=== PATIENT | male | born 1950 | race Caucasian/White ===

== ENCOUNTER → 2022-02-07 | Outpatient (CLI) | payer MEDICARE, OTHER, SELFPAY | END | disposition home or self-care (01) | PROVIDERS: Referring Provider Internal Medicine Nephrology; Visit Provider Internal Medicine Nephrology | DX: Z01.818 Encounter for other preprocedural examination (principal); N18.6 End stage renal disease | CPT/HCPCS: 93985 ==

== ENCOUNTER 2022-04-04 08:25 | Day surgery (SDC) | payer MEDICARE, OTHER, SELFPAY ==
--- NOTE | 2022-04-02 09:24 | EKG12_ITS ---
Test Reason : PRE-OP Blood Pressure : / mmHG Vent. Rate : 056 BPM Atrial Rate : 056 BPM P-R Int : 210 ms QRS Dur : 148 ms QT Int : 480 ms P-R-T Axes : 053 -25 -79 degrees QTc Int : 463 ms Sinus bradycardia with 1st degree A-V block Right bundle branch block Septal infarct , age undetermined T wave abnormality, consider inferolateral ischemia Abnormal ECG Confirmed by ALYSON NEVES, CHRISTY ([id number]), scientific publications editor TANVI GONZALEZ ([id number]) on 04/03/2022 11:06:15 AM Referred By: DESIREE Confirmed By:CHRISTY SHIELDS MD
[2022-04-02 10:57] LABS: Hematocrit 35.6 % (40-54); Mean Corp Hgb Conc 33.7 g/dL (32-36); Mean Corpuscular Hgb 34.2 pg (27.0-32.0); Mean Corpuscular Volume 101.4 fL (80-94); Mean Platelet Vol. 12.3 fl (6.2-12.0); POSITIVE COUNT YES; Platelet Count 70 K/mm3 (150-450); RBC Distribution Width CV 13.7 % (11.6-14.6); RBC Distribution Width SD 51.2 fl (35.1-43.9); Red Blood Count 3.51 M/mm3 (4.6-6.2); White Blood Count 3.8 K/mm3 (4.4-11.0)
[2022-04-02 10:58] LABS: Scan Indicated on CBC? Y/N YES- FLAGS NOTED
[2022-04-02 11:18] LABS: Anion Gap 6 (5-15); BUN 26 mg/dL (7-18); BUN/Creat Ratio 7.1 RATIO (10-20); Calcium,Total 9.5 mg/dL (8.5-10.1); Chloride 99 mmol/L (98-107); Creatinine, Serum 3.65 mg/dL (0.70-1.30); EST Glomerular Filtration Rate 17 mL/min (>60); Est Glom Filt Rate - Afr Amer 21 mL/min (>60); Glucose 267 mg/dL (74-106); Potassium 3.9 mmol/L (3.5-5.1); Sodium Level 137 mmol/L (136-145)
[2022-04-04] VITALS (9 sets, daily range): BP systolic 72–119; BP diastolic 45–66; PULSE 47–59; RESP 14–16; TEMP 36.3–37; O2SAT 92–99; BMI 26.6
[2022-04-04 10:00] LABS: Bedside Glucose 166 mg/dL (74-106)
--- NOTE | 2022-04-04 10:26 | PCM.HP.BLA ---
History and Physical Date of Admission: 04/04/22 Chief Complaint: fistula consult Benefit Specialist Required: No Is patient in pain?: No Allergies codeine Allergy (Verified 03/12/22 15:47) PT UNSURE OF REACTIONlisinopril Allergy (Verified 03/12/22 15:47) cough Medications amlodipine 2.5 mg tablet 2.5 mg PO DAILY 03/12/22 [History Confirmed 03/12/22] aspirin 81 mg chewable tablet 81 mg PO DAILY 03/12/22 [History Confirmed 03/12/22] atorvastatin 80 mg tablet 80 mg PO QPM 03/12/22 [History Confirmed 03/12/22] calcitriol 0.25 mcg capsule 0.5 mcg PO DAILY 03/12/22 [History Confirmed 03/12/22] clopidogrel 75 mg tablet 75 mg PO DAILY 03/12/22 [History Confirmed 03/12/22] cyanocobalamin (vitamin B-12) 1,000 mcg capsule 1,000 mcg PO DAILY 03/12/22 [History Confirmed 03/12/22] ferrous sulfate 325 mg (65 mg iron) tablet 325 mg PO Q OTHER DAY 03/12/22 [History Confirmed 03/12/22] folic acid 1 mg tablet 1 mg PO DAILY 03/12/22 [History Confirmed 03/12/22] furosemide 20 mg tablet 20 mg PO DAILY PRN 03/12/22 [History Confirmed 03/12/22] furosemide 20 mg tablet (Lasix) 40 mg PO DAILY 03/12/22 [History Confirmed 03/12/22] hydralazine 10 mg tablet 10 mg PO TID 03/12/22 [History Confirmed 03/12/22] insulin glargine 100 unit/mL (3 mL) subcutaneous pen 25 unit subcut QAM 03/12/22 [History Confirmed 03/12/22] lidocaine 5 % topical patch 1 patch topical DAILY 03/12/22 [History Confirmed 03/12/22] metoprolol succinate 25 mg tablet,extended release 24 hr 12.5 mg PO DAILY 03/12/22 [History Confirmed 03/12/22] nitroglycerin 0.1 mg/hr transdermal 24 hour patch 1 patch transdermal DAILY 03/12/22 [History Confirmed 03/12/22] nitroglycerin 0.4 mg sublingual tablet 0.4 mg sublingual Q5M PRN 03/12/22 [History Confirmed 03/12/22] omeprazole 20 mg capsule,delayed release 20 mg PO DAILY 03/12/22 [History Confirmed 03/12/22] pregabalin 75 mg capsule 75 mg PO BID 03/12/22 [History Confirmed 03/12/22] tramadol 50 mg tablet 50 mg PO BID PRN 03/12/22 [History Confirmed 03/12/22] PFSH Surgical History?(Updated 03/12/22 @ 12:50 by Ginna Merida) History of heart artery stent Social History?(Updated 03/12/22 @ 12:51 by Ginna Merida) Smoking Status:? Never smoker alcohol intake:? current substance use type:? does not use HPI HPI HPI: 71-year-old gentleman was referred for chronic hemodialysis access by Dr Jeniffer Galan and a written copy my surgical consult recommendations will return to him.? The patient has end-stage renal disease. At the [facility] on February 07, 2022 he had bilateral upper extremity vein mapping.? It is pertinent that the left cephalic vein at the mid bicep is partially compressible with bright intraluminal echoes consistent with chronic superficial thrombophlebitis.? The left upper arm basilic vein is of normal caliber and compressibility.? The right upper extremity cephalic vein appears to be patent and compressible throughout as does the basilic vein.? Bilateral brachial and radial arteries are felt to be appropriate. Patient is right arm dominant.? He states that he has had 3 separate tunneled catheters.? 1 on the right and now his second 1 and third 1 on the left.? His preoperative vein mapping as above showed thrombophlebitis left forearm. He states that his renal failure was in part result of coronary catheterization and dye load with stent placement approximately JuneJuly 2021 according to him.? He is on anticoagulant but is not aware of the medication ROS General General: No weight change, appetite, fatigue, colon cancer, breast cancer or weakness HEENT HEENT: Yes eye surgery; No difficulty swallowing, eye injury, swollen glands or hoarseness Endo Endocrine: Yes diabetes mellitus; No thyroid disease, thyroid cancer, Hair loss, heat intolerance or cold intolerance Skin Skin: No rash or changing moles Breast Breast: No left breast lump, right breast lump, nipple discharge, breast pain, abnormal mammogram, abnormal US or breast enlargement Musc Musculoskeletal: Yes back problems; No arthritis, rheumatoid arthritis, gout or joint pain Cardio Cardiovascular: Yes heart disease and heart stent; No murmur, pacemaker, atrial fibrillation, high blood pressure, heart attack, palpitations, shortness of breat with exertion or chest pain Psych Psychiatric: No depression, anxiety or hearing voices Resp Respiratory: No shortness of breath, No sleep apnea, No cough, No COPD, No asthma, No emphysema and No wheezing Gastro Gastrointestinal: No abdominal pain, No nausea or vomiting, No diarrhea, No constipation, No blood in stool, No acid reflux, No hemorrhoids, No ulcers, No gallbladder problem and No black,tarry stools Macario Hematologic: No blood thinners, No blood disorders, No bleeding, No anemia and No blood clots Neuro Neurologic: No system reviewed and no additional complaints, except as documented, No as per HPI, No abnormal gait, No abnormal hearing, No abnormal movements, No abnormal speech, No behavioral changes, No burning sensations, No confusion, No convulsions, No disequilibrium, No dizziness, No localized weakness, No frequent falls, No headache(s), No lack of coordination, No loss of vision, No memory loss, No numbness, No other visual disturbances, No radicular pain, No restless legs, No sensory deficit, No syncope, No tingling, No tremor(s), No weakness and No other Exam Const General: cooperative, comfortable and no acute distress Nutritional Appearance: average body habitus Orientation: alert, awake and oriented x3 HENMT Head: normal to inspection Eyes Other: Pupils are small Chest Other: Left chest tunneled dialysis catheters Resp Effort & Inspection: normal respiratory effort Auscultation: clear to auscultation bilaterally Cardio Rate: regular rate Rhythm: regular rhythm GI Palpation: soft and no hepatosplenomegaly Skin General: no rashes or lesions noted Neuro Other: Patient has a wide-based unsteady gait Extrem Other: Duplex inspection of the left forearm demonstrates superficial thrombophlebitis of the cephalic vein.? Unfortunately in the mid upper arm cephalic vein there is also an area of focal thrombophlebitis with vein scarring and narrowing Right upper extremity demonstrates patent and compressible cephalic vein from the forearm through the upper arm. Right radial pulse 3+.? Left ulnar pulse diminutive.? Connor test does demonstrate partial ulnar flow. Psych Appearance: grossly normal Assessment and Plan Assessment and Plan (1) Chronic in-center hemodialysis status: ?Status:?Acute ?Plan: Navjot recommended the patient a right forearm radial to cephalic arteriovenous hemodialysis fistula creation.? He has a side branch approximately third of the way up which hopefully I will ligate the setting.? The patient is on anticoagulant we will check his medication from his dialysis center.? We will least need to hold his anticoagulant the day prior to procedure. He is aware that it is dominant arm but unfortunately secondary to venous intervention he has superficial thrombophlebitis of his left forearm and upper arm cephalic vein.? A transposition left upper arm basilic vein would be is significantly greater intervention and would certainly require longer holding of his anticoagulant which I do not advise at this time He is aware that there are no guarantees of success.? He is aware of the technique, benefit, risk, alternatives.? He has had an opportunity to ask and have questions answered. I appreciate the opportunity of assisting with the surgical care.? We will schedule and proceed at his discretion. It is of note that we have been notified the patient is on clopidogrel therapy as well as low-dose aspirin.? He asked that he hold his clopidogrel 1 day preoperatively.? A longer period of time unfortunately is not appropriate based upon his coronary stenting. Copy: Dr Jeniffer Galan and Arnaud Goodwin , DO Errol Milian M.D., F.A.C.S. I have examined the patient and the H&P has been reviewed. There are no clinical changes since date of exam. Errol Milian M.D., F.A.C.S.
--- NOTE | 2022-04-04 10:26 | EX.PCM.DISCH ---
Discharge Instructions Procedure Fistula Diet Discharge Diet: Renal Diet Activity Discharge Activity: May Not Drive (for 2-3 days or while taking narcotic pain medications.) and May Take a Tub Bath (in 5 days.) Lifting Restrictions: 5 pounds Keep extremity elevated above heart level: - (Keep arm elevated above the heart level for 3 days.) Dressing / Incision Call your doctor if your incision/area has: Continuous Slow Oozing, Sudden Increased Bleeding (apply pressure and call your doctor.), Increased Pain/ Swelling, Increased Redness and Foul Smelling Discharge Call your doctor if you observe: Fever of 101 or Higher Suture Line Care: Avoid Pulling/Pushing and Avoid Pinching/Bending Cleanse incision/area with: Keep Dressing Clean & Dry Additional Dressing/Incision Instructions:: Change or remove dressing in 2 to 3 days. May protect with a gauze bandaid. Leave the Steri-Strips in place for 1 additional week Follow Up Care Please Follow Up With: Errol Milian MD When: Call [phone] to make an appointment for suture removal and follow up in 7 to 10 days. Discharge Plan Admission Primary Reason for Your Visit: Creation of hemodialysis fistula Attending Provider: Errol Milian Primary Care Provider: Arnaud Goodwin Discharge Orders/Prescriptions Prescriptions: Continued aspirin 81 mg tablet,chewable 81 mg PO DAILY nitroglycerin 0.1 mg/hr patch 24 hour 1 patch transdermal DAILY Rx Instructions: allow nitrate-free interval of approx. 10-12 hrs per 24-hour period nitroglycerin 0.4 mg tablet, sublingual 0.4 mg sublingual Q5M PRN (Reason: Chest Pain) Rx Instructions: do not exceed 3 doses per episode hydralazine 10 mg tablet 10 mg PO DAILY atorvastatin 80 mg tablet 80 mg PO QPM metoprolol succinate 25 mg tablet extended release 24 hr 12.5 mg PO QHS calcitriol 0.25 mcg capsule 0.25 mcg PO BID amlodipine 2.5 mg tablet 2.5 mg PO DAILY pregabalin 75 mg capsule 75 mg PO BID cyanocobalamin (vitamin B-12) 1,000 mcg capsule 1,000 mcg PO DAILY folic acid 1 mg tablet 1 mg PO DAILY omeprazole 20 mg capsule,delayed release(DR/EC) 20 mg PO DAILY insulin glargine 100 unit/mL (3 mL) insulin pen 25 unit subcut QHS ferrous sulfate 325 mg (65 mg iron) tablet 325 mg PO Q OTHER DAY lidocaine 5 % adhesive patch,medicated 1 patch topical DAILY Rx Instructions: leave on most painful area for up to 12 hrs furosemide [Lasix] 20 mg tablet 40 mg PO DAILY furosemide 20 mg tablet 20 mg PO QHS tramadol 50 mg tablet 50 mg PO BID PRN (Reason: Pain) clopidogrel 75 mg tablet 75 mg PO DAILY Other Ambulatory Orders: 12 Lead EKG (Routine) Timeframe: 20220402 Location: None Selected Ordered By: Dr. Errol Milian Referrals / Follow Up: Arnaud Goodwin DO [Primary Care Provider] - Disposition Disposition (needs filled in before D/C Order can be placed): Home, Self Care
[2022-04-04] MEDS: Cefazolin 2 GM in 0.9% Normal Saline 100 ML IV (10:33)
[2022-04-04] MEDS: Bupivacaine 0.25% 30 ML Vial (11:37)
[2022-04-04] MEDS: Lidocaine 1% (20 ml mdv) 20 ML Vial (11:37)
[2022-04-04] MEDS: Heparin Injection (Vial) 5,000 UNIT/ML VIAL 5000 UNIT (11:37)
--- NOTE | 2022-04-04 11:54 | PCM.OPRPT ---
Report of Operation Date of Procedure: 04/04/22 Pre-Operative Diagnosis: Stage V chronic renal insufficiency Post-Operative Diagnosis: Same Surgery/Procedure Performed:: Right forearm radiocephalic arteriovenous hemodialysis fistula creation Description of Surgical Findings:: Timeout informed consent was obtained. 72-year-old gentleman was taken to the operating placed supine on the table underwent monitored anesthesia care. Ancef 2 g given intravenously. The right upper extremity was sterilely prepped and draped. 1% lidocaine mixed 50-50 with 0.5% Marcaine was used as a local anesthetic. A total of 4 cc was used. Ultrasound mapping of the vein had been performed. Local was instilled. A slightly oblique transverse right radial wrist incision was created sharp and blunt dissection was used to identify the cephalic vein this was circumferentially dissected free. It was ink marked. Sharp and blunt dissection was used to identify the radial artery which was admittedly diffusely calcific. The vein was ligated distally with hemoclips then it was inspected irrigated and spatulated. Patient received 8000 units of heparin and peripheral vascular clamps were placed on the radial artery and 11 blade was used to make an arteriotomy which was extended with Blank scissors. A end-to-side venous to arterial anastomosis was created with a running 7-0 Prolene. Prior to completion there was good antegrade retrograde flow and I placed a 2 mm Ruben dilator proximally. Anastomosis was completed hemostasis was nicely intact the vein appeared to immediately distend. I then examined approximately 6 cm more proximally on the cephalic vein and a sidebranch instilled local made a transverse incision got circumferential control of that side branch and secured with a 2-0 Vicryl ligature. Inspection revealed a fistula already flowing nicely. The wounds were closed were appropriate with interrupted subdermal 3-0 Vicryl and then interrupted subcuticular 4-0 Monocryl. Steri-Strips Telfa tape dressings applied. Sponge and instrument and needle counts were reported to the surgeon to be correct. Specimens none. Drains none. Blood loss minimal. The patient was taken to the recovery area in satisfactory addition without apparent complication Errol Milian M.D., F.A.C.S. Surgeon: Errol Milian Type of Anesthesia: Local MAC Anesthesiologist: Carlos Avalos
== END 2022-04-04 15:00 | disposition home or self-care (01) ==
LOC: SDC 08:25 → AC 08:26
PROVIDERS: PCP Internal Medicine; Visit Provider Surgery
PROC: (CPT 36821; principal; 2022-04-04 10:15)
DX: Z45.2 Encounter for adjustment and management of vascular access device (principal); I13.2 Hypertensive heart and chronic kidney disease with heart failure and with stage 5 chronic kidney disease, or end stage renal disease; Z99.2 Dependence on renal dialysis; I50.9 Heart failure, unspecified; I27.20 Pulmonary hypertension, unspecified; N18.6 End stage renal disease; Z79.4 Long term (current) use of insulin; I45.10 Unspecified right bundle-branch block; E78.00 Pure hypercholesterolemia, unspecified; Z95.5 Presence of coronary angioplasty implant and graft; Z79.82 Long term (current) use of aspirin; Z79.02 Long term (current) use of antithrombotics/antiplatelets; Z79.899 Other long term (current) drug therapy
CPT/HCPCS: 36821; 01844; 36415; 80048; 82962; 85027; 93005; J7040; J2405

== ENCOUNTER → 2022-08-22 | Outpatient (CLI) | payer MEDICARE, OTHER, SELFPAY ==
[2022-08-22 08:56] LABS: Absolute Lymphocyte Count 0.91 X10^3/uL (0.83-4.51); Absolute Neutrophil Count 3.3 X10^3/uL (2.0-7.7); Basophil# 0.02 X10^3/uL; Basophil% 0.4 % (0-1); Eosinophil# 0.18 X10^3/uL; Eosinophils% 3.6 % (0-5); Hematocrit 32.5 % (40-54); Hemoglobin 10.8 g/dL (13.0-16.5); Lymphocyte # 0.91 X10^3/ul (0.83-4.51); Lymphocyte % 18.3 % (19-41); Mean Corp Hgb Conc 33.2 g/dL (32-36); Mean Corpuscular Hgb 34.1 pg (27.0-32.0); Mean Corpuscular Volume 102.5 fL (80-94); Mean Platelet Vol. 11.9 fl (6.2-12.0); Monocyte# 0.59 X10^3/uL; Monocyte% 11.9 % (0-10); NRBC Flagged by Analyzer 0 % (0-5); Neutrophil # 3.25 X10^3/uL (2.7-7.7); Neutrophil % 65.4 % (47-70); POSITIVE COUNT YES; Platelet Count 83 K/mm3 (150-450); RBC Distribution Width CV 13.1 % (11.6-14.6); RBC Distribution Width SD 49.5 fl (35.1-43.9); Red Blood Count 3.17 M/mm3 (4.6-6.2)
[2022-08-22 09:16] LABS: Anion Gap 8 (5-15); BUN 46 mg/dL (7-18); BUN/Creat Ratio 9.3 RATIO (10-20); Calcium,Total 9.7 mg/dL (8.5-10.1); Chloride 103 mmol/L (98-107); Creatinine, Serum 4.92 mg/dL (0.70-1.30); EST Glomerular Filtration Rate 12 mL/min (>60); Est Glom Filt Rate - Afr Amer 15 mL/min (>60); Glucose 119 mg/dL (74-106); Potassium 4.2 mmol/L (3.5-5.1); Sodium Level 141 mmol/L (136-145)
== END | disposition home or self-care (01) ==
LOC: PAVLAB 08:36
PROVIDERS: PCP Internal Medicine; Referring Provider Physician Assistant; Visit Provider Physician Assistant
DX: T82.898A Other specified complication of vascular prosthetic devices, implants and grafts, initial encounter (principal)
CPT/HCPCS: 36415; 80048; 85025

== ENCOUNTER 2022-09-03 06:41 | Day surgery (SDC) | payer MEDICARE, OTHER, SELFPAY ==
[2022-09-02 08:13] VITALS: BMI 26.4
--- NOTE | 2022-09-03 07:30 | PCM.HP.BLA ---
History and Physical Date of Admission: 09/03/22 Visit Reasons:?issues with fistula/infiltrating Chief Complaint: issues with fistula Philosophy Faculty Member Required: No Is patient in pain?: No Allergies codeine Allergy (Verified 08/22/22 08:15) PT UNSURE OF REACTIONlisinopril Allergy (Verified 08/22/22 08:15) cough Medications amlodipine 2.5 mg tablet 2.5 mg PO DAILY 03/12/22 [History Confirmed 08/22/22] aspirin 81 mg chewable tablet 81 mg PO DAILY 03/12/22 [History Confirmed 08/22/22] atorvastatin 80 mg tablet 80 mg PO QPM 03/12/22 [History Confirmed 08/22/22] calcitriol 0.25 mcg capsule 0.25 mcg PO BID 03/12/22 [History Confirmed 08/22/22] clopidogrel 75 mg tablet 75 mg PO DAILY 03/12/22 [History Confirmed 08/22/22] cyanocobalamin (vitamin B-12) 1,000 mcg capsule 1,000 mcg PO DAILY 03/12/22 [History Confirmed 08/22/22] ferrous sulfate 325 mg (65 mg iron) tablet 325 mg PO Q OTHER DAY 03/12/22 [History Confirmed 08/22/22] folic acid 1 mg tablet 1 mg PO DAILY 03/12/22 [History Confirmed 08/22/22] furosemide 20 mg tablet 20 mg PO QHS 03/12/22 [History Confirmed 08/22/22] furosemide 20 mg tablet (Lasix) 40 mg PO DAILY 03/12/22 [History Confirmed 08/22/22] hydralazine 10 mg tablet 10 mg PO DAILY 03/12/22 [History Confirmed 08/22/22] insulin glargine 100 unit/mL (3 mL) subcutaneous pen 25 unit subcut QHS 03/12/22 [History Confirmed 08/22/22] lidocaine 5 % topical patch 1 patch topical DAILY 03/12/22 [History Confirmed 08/22/22] metoprolol succinate 25 mg tablet,extended release 24 hr 12.5 mg PO QHS 03/12/22 [History Confirmed 08/22/22] nitroglycerin 0.1 mg/hr transdermal 24 hour patch 1 patch transdermal DAILY 03/12/22 [History Confirmed 08/22/22] nitroglycerin 0.4 mg sublingual tablet 0.4 mg sublingual Q5M PRN Chest Pain 03/12/22 [History Confirmed 08/22/22] omeprazole 20 mg capsule,delayed release 20 mg PO DAILY 03/12/22 [History Confirmed 08/22/22] pregabalin 75 mg capsule 75 mg PO BID 03/12/22 [History Confirmed 08/22/22] tramadol 50 mg tablet 50 mg PO BID PRN Pain 03/12/22 [History Confirmed 08/22/22] PFSH Medical History? Cardiology follow-up encounter Chest pain Chronic in-center hemodialysis status Diabetes Gastric reflux Heart disease Heartburn High cholesterol History of CHF (congestive heart failure) History of diverticulitis History of edema History of renal disease History of stress test Hx of testicular biopsy Hypertension Insulin dependent diabetes mellitus Leg cramps Low iron Non-smoker Numbness and tingling Walker as ambulation aid Wears dentures Wears glasses Surgical History? History of arteriovenous graft History of back surgery History of heart artery stent Hx of CABG Hx of knee surgery Hx of wisdom tooth extraction Social History? Smoking Status:? Never smoker alcohol intake:? current substance use type:? does not use HPI HPI Surgical H&P: Yes HPI: Patient is a 72 y/o M I am seeing for problem with dialysis access. Patient's dialysis center called our office noting the patient's fistula was infiltrating. Patient has a right forearm radiocephalic arteriovenous fistula which was created on 04/30/22. Patient has never had a fistulogram previously. Patient had a successful right forearm cephalic vein sidebranch ligation [address] Milian on 05/23/22. Patient is currently on dialysis at [facility]. Dr. Casas is his wrapper stitcher. ? 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 Patient is currently on Plavix daily. Patient has been wearing a nitro patch approximately 16 hours per day for at least 6 months. Patient denies chest pain currently. ROS General General: No weight change, appetite, fatigue, colon cancer, breast cancer or weakness HEENT HEENT: Yes eye surgery; No difficulty swallowing, eye injury, swollen glands or hoarseness Endo Endocrine: Yes diabetes mellitus; No thyroid disease, thyroid cancer, Hair loss, heat intolerance or cold intolerance Skin Skin: No rash or changing moles Breast Breast: No left breast lump, right breast lump, nipple discharge, breast pain, abnormal mammogram, abnormal US or breast enlargement Musc Musculoskeletal: Yes back problems; No arthritis, rheumatoid arthritis, gout or joint pain Cardio Cardiovascular: Yes heart disease and heart stent; No murmur, pacemaker, atrial fibrillation, high blood pressure, heart attack, palpitations, shortness of breat with exertion or chest pain Psych Psychiatric: No depression, anxiety or hearing voices Resp Respiratory: No shortness of breath, No sleep apnea, No cough, No COPD, No asthma, No emphysema and No wheezing Gastro Gastrointestinal: No abdominal pain, No nausea or vomiting, No diarrhea, No constipation, No blood in stool, No acid reflux, No hemorrhoids, No ulcers, No gallbladder problem and No black,tarry stools Macario Hematologic: No blood thinners, No blood disorders, No bleeding, No anemia and No blood clots Neuro Neurologic: No system reviewed and no additional complaints, except as documented, No as per HPI, No abnormal gait, No abnormal hearing, No abnormal movements, No abnormal speech, No behavioral changes, No burning sensations, No confusion, No convulsions, No disequilibrium, No dizziness, No localized weakness, No frequent falls, No headache(s), No lack of coordination, No loss of vision, No memory loss, No numbness, No other visual disturbances, No radicular pain, No restless legs, No sensory deficit, No syncope, No tingling, No tremor(s), No weakness and No other Exam Const General: cooperative, healthy appearing, comfortable and no acute distress [facility] Head: normal to inspection Eyes General: appearance normal, both eyes and all related structures Neck Neck: normal visual inspection Neck mass: No Resp Effort & Inspection: normal respiratory effort Auscultation: clear to auscultation bilaterally Cardio Rate: regular rate Rhythm: regular rhythm GI Inspection: normal to inspection Palpation: soft Skin General: ecchymosis (Right mid forearm from infiltration) Neuro General: no focal motor deficits and CN's II-XI intact bilaterally Extrem Other: Right forearm AV fistula- good pulse, diminished bruit and thrill with high pitched tone Psych Appearance: grossly normal Affect: normal affect Assessment and Plan Assessment and Plan (1) Problem with dialysis access: ?Status:?Acute ?Plan: Dr. Milian will plan to perform an elective right forearm fistulogram. Procedure details, risks and benefits have been explained to the patient. Patient has had the opportunity to ask and have questions answered. Patient verbally understands and agrees with the plan. Plan to hold the patient's Plavix for 1 day prior to the procedure. I have examined the patient and the H&P has been reviewed. There are no clinical changes since date of exam. Errol Milian M.D., F.A.C.S.
--- NOTE | 2022-09-03 09:40 | PCM.OPRPT ---
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 72-year-old gentleman was taken to the special procedures lab placed on the table. The right extremity sterilely prepped and draped. He received 50 mcg of fentanyl and 2 mg of Versed is intravenous sedation. Ultrasound was used to identify the cephalic vein closer to the anastomosis I felt that there was good inflow clinically. Under ultrasound guidance 2% lidocaine was used as a local anesthetic throughout the procedure a total of 4 cc was used. Micropuncture needle inserted antegrade with flow micropuncture wire 6 [place] short sheath dilator then using Isovue contrast fistulogram of the forearm and upper arm was obtained. There is good outflow centrally. There appeared to be moderate stenosis within the proximal portion of the fistula just past the arching down to the artery. I placed a 6 x 4 conquest balloon performed balloon angioplasty of that try to get a retrograde flow was not very successful however antegrade flow appeared to be poor. Then used ultrasound in about the mid forearm but local when and then retrograde with flow inserted micropuncture needle micropuncture wire 6 [place] short sheath dilator. Then using a Glidewire and a 4 [place] glide cath gain access to the radial artery proximal to the anastomosis. Fistulogram was obtained this time good imaging was obtained and there was evidence of a high-grade stenosis of at least 90% that was approximately 3 cm from the anastomosis. So over the Glidewire I then placed a 6 x 2 Powerflex balloon balloon angioplasty was performed all the way up to 16 jerrica without resolution of the stenosis. I exchanged out the Powerflex placed the 6 x 4 conquest balloon at this time insufflated that to 16 jerrica of pressure this time with resolution of the area of stenosis. That was held for 3 minutes. The balloon was removed I replaced 4 [place] glide catheter radial artery and a final fistulogram was obtained now demonstrating resolution of the proximal fistula venous stenosis and good flow. The glide cath and wire were removed. Sheaths were removed and the sutures of 4-0 nylon was placed. He tolerated the procedure well. Images demonstrate right forearm radiocephalic arteriovenous hemodialysis fistula. There appeared to be some moderate stenosis within the very proximal portion of the fistula at about 6 to 10 cm which was treated with the conquest balloon. On further imaging however there was a tight stenosis approximately 3 cm from the anastomosis that was treated with a Powerflex balloon and then the also the conquest balloon. Resolution was achieved. There appeared to be good arterial inflow. There was good proximal forearm and upper arm and central venous outflow. Impression: Successfully treated proximal fistula venous stenosis. If the patient requires additional access then I would start with a retrograde access in the mid to proximal forearm. Errol Milian M.D., F.A.C.S. Surgeon: Errol Milian Type of Anesthesia: IV Sedation and Local
== END 2022-09-03 10:45 | disposition home or self-care (01) ==
PROVIDERS: PCP Internal Medicine; Referring Provider Surgery; Visit Provider Surgery
DX: T82.898A Other specified complication of vascular prosthetic devices, implants and grafts, initial encounter (principal); I87.2 Venous insufficiency (chronic) (peripheral); Y83.8 Other surgical procedures as the cause of abnormal reaction of the patient, or of later complication, without mention of misadventure at the time of the procedure; Z79.4 Long term (current) use of insulin; E11.9 Type 2 diabetes mellitus without complications; E78.00 Pure hypercholesterolemia, unspecified; Z79.82 Long term (current) use of aspirin; Z79.02 Long term (current) use of antithrombotics/antiplatelets; Z79.899 Other long term (current) drug therapy; Z95.5 Presence of coronary angioplasty implant and graft
CPT/HCPCS: 36902; 76937; 99152; 99153; Q9967; C1725; C1769

== ENCOUNTER 2024-07-08 07:11 | Day surgery (SDC) | payer MEDICARE, OTHER, SELFPAY ==
[2024-07-08 07:16] VITALS: BMI 23.5
[2024-07-08 07:32] LABS: Hematocrit 30.8 % (40-54); Hemoglobin 9.9 g/dL (13.0-16.5); Mean Corp Hgb Conc 32.1 g/dL (32-36); Mean Corpuscular Hgb 34.5 pg (27.0-32.0); Mean Corpuscular Volume 107.3 fL (80-94); Mean Platelet Vol. 12.8 fl (6.2-12.0); POSITIVE COUNT YES; Platelet Count 45 K/mm3 (150-450); RBC Distribution Width CV 16.2 % (11.6-14.6); RBC Distribution Width SD 63.9 fl (35.1-43.9); Red Blood Count 2.87 M/mm3 (4.6-6.2); White Blood Count 3.4 K/mm3 (4.4-11.0)
[2024-07-08 07:49] LABS: Anion Gap 6 (5-15); BUN 25 mg/dL (7-18); BUN/Creat Ratio 7.8 RATIO (10-20); Calcium,Total 10.5 mg/dL (8.5-10.1); Chloride 99 mmol/L (98-107); EST Glomerular Filtration Rate 20 mL/min (>60); Est Glom Filt Rate - Afr Amer 24 mL/min (>60); Glucose 139 mg/dL (74-106); Potassium 4.4 mmol/L (3.5-5.1); Scan Indicated on CBC? Y/N YES- FLAGS NOTED; Sodium Level 137 mmol/L (136-145)
--- NOTE | 2024-07-08 09:22 | PCM.HP.STD ---
HPI - General HPI Narrative MIGEL LANDRY, is a 74 M who presents with right forearm fistula with inadequate flow volumes. He previously almonte angioplasty just beyond arterial anastomosis in August 2022. He also some a little longer bleeding time. [facility] Medical History Cardiology follow-up encounter Chest pain Chronic in-center hemodialysis status Diabetes Gastric reflux Heart disease Heartburn High cholesterol History of CHF (congestive heart failure) History of diverticulitis History of edema History of renal disease History of stress test Hx of testicular biopsy Hypertension Insulin dependent diabetes mellitus Leg cramps Low iron Non-smoker Numbness and tingling Walker as ambulation aid Wears dentures Wears glasses Home Medications ?Medication ?Instructions ?Recorded ?Last Taken ?Type amlodipine 2.5 mg tablet 2.5 mg PO DAILY 03/12/22 04/04/22 History aspirin 81 mg chewable tablet 81 mg PO DAILY 03/12/22 04/03/22 History atorvastatin 80 mg tablet 80 mg PO QPM 03/12/22 Unknown History calcitriol 0.25 mcg capsule 0.25 mcg PO BID 03/12/22 04/04/22 History clopidogrel 75 mg tablet 75 mg PO DAILY 03/12/22 04/01/22 History cyanocobalamin (vitamin B-12) 1,000 mcg PO DAILY 03/12/22 Unknown History 1,000 mcg capsule ferrous sulfate 325 mg (65 mg 325 mg PO Q OTHER DAY 03/12/22 Unknown History iron) tablet folic acid 1 mg tablet 1 mg PO DAILY 03/12/22 Unknown History furosemide 20 mg tablet 20 mg PO QHS 03/12/22 Unknown History furosemide 20 mg tablet (Lasix) 40 mg PO DAILY 03/12/22 Unknown History hydralazine 10 mg tablet 10 mg PO DAILY 03/12/22 Unknown History insulin glargine 100 unit/mL (3 25 unit subcut QHS 03/12/22 Unknown History mL) subcutaneous pen lidocaine 5 % topical patch 1 patch topical DAILY 03/12/22 Unknown History metoprolol succinate 25 mg 12.5 mg PO QHS 03/12/22 Unknown History tablet,extended release 24 hr nitroglycerin 0.1 mg/hr 1 patch transdermal DAILY 03/12/22 Unknown History transdermal 24 hour patch nitroglycerin 0.4 mg sublingual 0.4 mg sublingual Q5M PRN Chest 03/12/22 Unknown History tablet Pain omeprazole 20 mg capsule,delayed 20 mg PO DAILY 03/12/22 04/04/22 History release pregabalin 75 mg capsule 75 mg PO BID 03/12/22 Unknown History tramadol 50 mg tablet 50 mg PO BID PRN Pain 03/12/22 Unknown History Allergy/AdvReac Type Severity Reaction Status Date / Time codeine Allergy PT UNSURE Verified 08/22/22 08:15 OF REACTION lisinopril Allergy cough Verified 08/22/22 08:15 Surgical History History of arteriovenous graft History of back surgery History of heart artery stent Hx of CABG Hx of knee surgery Hx of wisdom tooth extraction Social History Smoking Status: Never smoker alcohol intake: current substance use type: does not use ROS Constitutional Constitutional: Denies chills, fever(s), frequent falls, lethargy or weakness Eyes Eyes: Denies blind spots, change in vision or loss of vision ENT HEENT: Denies bleeding gums, hoarseness or sore throat Cardiovascular Cardiovascular: Denies abdominal pain, bluish discoloration of hand/feet, chest pain with activity, claudication, cold extremities, cyanosis, dyspnea on exertion, erythema on extremities, irregular heart rhythm, leg edema, leg ulcers, numbness in extremities or weakness in extremities Respiratory/Chest Respiratory/Chest: Denies cough, excessive phlegm production, shortness of breath at rest, shortness of breath with exertion or wheezing Gastrointestinal Gastrointestinal: Denies anorexia, change in stool character, constipation, diarrhea, melena or rectal bleeding Genitourinary Genitourinary: Denies dysuria or hematuria Musculoskeletal Musculoskeletal: Denies abnormal gait Integumentary Integumentary: Reports other Details: ; Denies erythema, non-healing lesions or wounds Neurologic Neurologic: Denies abnormal speech, focal weakness, headache(s), loss of vision, numbness, paresthesias or sensory deficit Hematologic/Lymphatic Hematologic/Lymphatic: Denies easy bleeding, easy bruising or lymphadenopathy Vital Signs Vital Signs Vital Signs: Weight Weight: 168 lb Body Mass Index (BMI) 23.5 Physical Exam Const alert, oriented x3, no apparent distress and healthy appearing General Appearance: cooperative; Negative for combative or lethargic Orientation / Consciousness: awake Exam Limitations: no limitations HEENT Head and Scalp: normocephalic and atraumatic Eyes EOMs intact bilaterally General Eye: normal appearance of both eyes Neck full ROM General: trachea midline Resp normal respiratory effort and no use of accessory muscles Effort and Inspection: Negative for labored, stridor or audible wheezes Cardio regular rate and regular rhythm Peripheral Pulses: brachial pulses present and radial pulses present Back/Spine Cervical Spine: cervical ROM normal Extremity full ROM, normal capillary refill and no clubbing, cyanosis or edema Skin no rashes or lesions noted and no wounds Neuro oriented x3, CN's II-XII intact bilaterally, no focal motor deficits and no sensory deficits noted Psych thought process normal, cooperative, affect normal, speech normal and activity/motor behavior normal Results Lab / Micro Data 07/08/24 07:16 07/08/24 07:16 Labs: Laboratory Results - last 24 hr 07/08/24 07:16: WBC 3.4 L, RBC 2.87 L, Hgb 9.9 L, Hct 30.8 L, MCV 107.3 H, MCH 34.5 H, MCHC 32.1, RDW Std Deviation 63.9 H, RDW Coeff of Redd 16.2 H, Plt Count 45 L*, MPV 12.8 H, Sodium 137, Potassium 4.4, Chloride 99, Carbon Dioxide 32.0, Anion Gap 6, BUN 25 H, Creatinine 3.20 H, Est GFR (MDRD) Af Amer 24 L, Est GFR (MDRD) Non-Af 20 L, BUN/Creatinine Ratio 7.8 L, Glucose 139 H, Calcium 10.5 H Assessment & Plan Assessment/Plan (1) Problem with dialysis access: QUALIFIERS: Encounter type: initial encounter Qualified Code(s): T82.898A - Other specified complication of vascular prosthetic devices, implants and grafts, initial encounter PLAN: -fistulagram
--- NOTE | 2024-07-08 11:12 | PCM.OPRPT ---
Operative Report (Standard) Operative Information Date of Procedure: 07/08/24 Pre-Operative Diagnosis: Malfunction of a right forearm radiocephalic fistula with inadequate flow volumes Post-Operative Diagnosis: Same, stenosis of the proximal fistula Surgery/Procedure Performed: Fistulogram with angioplasty Intravascular ultrasound of the right radial artery, right cephalic vein accountant: No Type of Anesthesia: Local and Sedation,Conscious Procedure Start Time: 09:30 Procedure Stop Time: 10:30 Select all DRAINS/GRAFTS/IMPLANTS that apply: None Estimated Blood Loss: 8 Specimen collected: No Description of surgery: HPI: Patient is a 74-year-old male with end-stage renal disease currently on dialysis. He has a right arm radiocephalic forearm fistula which has been used for several years. Recently has had inadequate flow volumes during his sessions and over the last couple of weeks some increased bleeding time after needles are decannulated. He presents now for fistulogram with possible intervention. Description of procedure: Upon obtaining form consent and verification correct patient procedure site the patient was taken to the [facility] he was positioned prepped and draped in usual sterile fashion. Time was performed consultation ministered Versed and fentanyl. Skin overlying the fistula in the proximal forearm was anesthetized 1% lidocaine the vessel accessed ultrasound guidance with micropuncture needle wire. This then exchanged for a 6 [place] sheath through which injection fistulogram was performed including reflux in the arterial system with venous outflow compression and outflow assessment to the atria caval junction. This revealed focal high-grade stenosis just beyond the arterial anastomosis. The patient was then heparinized allowed circulate for 3 minutes after which a command 18 wire was advanced traversing the stenosis into the anastomosis and ultimately the radial artery towards the hand. Intravascular sound probe was then advanced medical record by performed of the radial artery and the cephalic vein. This confirmed 60% stenosis, provided reference vessel sizes and the extent of the lesion. A [employer] conquest 7 x 20 angioplasty balloon centered over the lesion which was then inflated to 20 jerrica with the residual stenosis at the center of the lesion. Balloon was then left inflated for 3 minutes then deflated and repositioned and reinflated. There continued to be a waist at this location so the balloon was withdrawn and a 6 mm x 20 [place] angioscope balloon was advanced in position inflated to burst pressure for multiple inflations and then deflated withdrawn. The 7 mm conquest balloon was then readvanced and inflated to 24 jerrica until finally the resistant area of stenosis gave way. The balloon was then kept inflated for 3 minutes then deflated withdrawn. A [employer] 7 x 60 paclitaxel coated angioplasty balloon was then advanced centered on the lesion and inflated to nominal for 2 minutes then deflated withdrawn. Completion angiography revealed satisfactory resolution of the stenosis with no residual stenosis, no extravasation of dissection. The venous outflow imaging had revealed occlusion of the cephalic vein in the proximal upper arm approximately where the lateral cubital branch joined. There also was a segment of small caliber median cubital vein as it emptied into the basilic vein though there was brisk contrast transit in the basilic vein itself was very large caliber. There also was filling into the deep system from a chemistry lab instructor at the antecubital crease which provided dominant deep venous outflow tract. Is felt that these lesions were not requiring intervention at this time though if he has persistent bleeding and longer bleeding times potentially surgical revision would be of benefit. A 4-0 Ethilon pursestring was then placed at the access site and the sheath withdrawn followed by 5 minutes of manual pressure with satisfactory stasis noted. The patient was then taken to the cover area for bedrest prior to discharge to home. Surgical Findings: See above Complications Complications: No
[2024-07-09 15:02] LABS: Pathologist Review Reviewed
== END 2024-07-08 12:00 | disposition home or self-care (01) ==
PROVIDERS: PCP Internal Medicine; Referring Provider Surgery Trauma Surgery; Visit Provider Surgery Trauma Surgery
DX: T82.858A Stenosis of other vascular prosthetic devices, implants and grafts, initial encounter (principal); I13.2 Hypertensive heart and chronic kidney disease with heart failure and with stage 5 chronic kidney disease, or end stage renal disease; N18.6 End stage renal disease; I50.9 Heart failure, unspecified; E11.22 Type 2 diabetes mellitus with diabetic chronic kidney disease; E78.00 Pure hypercholesterolemia, unspecified; Z99.2 Dependence on renal dialysis; K21.9 Gastro-esophageal reflux disease without esophagitis; I87.1 Compression of vein; Y71.8 Miscellaneous cardiovascular devices associated with adverse incidents, not elsewhere classified
CPT/HCPCS: 36415; 36902; 37252; 37253; 76937; 80048; 85027; 99152; 99153; C1725; C1753; C1769; C2623; Q9967